=== PATIENT | female | born 1955 | race Caucasian/White ===

== ENCOUNTER 2021-01-30 07:27 | Emergency (ER) | payer BC ==
[~2021-01-30] VITALS: Ht 157.5 cm; Wt 72.6 kg
[~2021-01-30 07:27] MED LIST: CELEBREX 200 M200 M1 PO; COMPAZINE25 MG RECTAL; COMPAZINE5 MG PO; DURAGESIC1 EAC2 TRANSDERM; GABAPENTIN 100100 MG PO; LIPITOR 20 MG T20 M1 PO; NEURONTIN 300300 M1 PO; NEXIUM 40 MG CA40 M1
[2021-01-30] MEDS ORDERED: VITAMIN D (07:38)
[2021-01-30] MEDS ORDERED: LISINOPRIL5 MG (07:38)
[2021-01-30] MEDS ORDERED: PREDNISONE 20 M20 M1 PO (08:33)
[2021-01-30] MEDS ORDERED: VENTOLIN HFA 1818 GM INH (08:33)
[2021-01-30] MEDS ORDERED: ZPAK PO (08:33)
[2021-01-30 09:05] VITALS: BP 132/64
--- NOTE | 2021-02-01 13:47 | EKG ---
[place] [address] ELECTROCARDIOGRAM REPORT Name: ROSA AVINA Room: [facility]#: [id number] Admission: 01/30/21 Attend Phys: Discharge: 01/30/21 Date of : 57 Date of Service: 01/30/21 0747 Report #: [id number] THIS REPORT FOR: //name// [facility] ED Test Date: 2021-01-30 Test Time: 07:47:53 Pat Name: ROSA AVINA Department: Room: Gender: Operational Intelligence Analyst: FRIEDA : 1955 Requested By: Jackson Rossi Order Number: [id number] John MD: Jhon Ha Measurements Intervals [place] Rate: 77 P: 74 AK: 149 QRS: 23 QRSD: 84 T: 33 QT: 378 QTc: 428 Interpretive Statements Sinus rhythm Probable left atrial enlargement No previous ECG available for comparison Electronically Signed On 02-01-2021 13:47:13 CDT by Jhon Ha [email or web address] <ELECTRONICALLY SIGNED> By: Jhon Ha MD, [facility] 02/01/21 1347 0747 0747 Jhon Ha MD, FACC /EPI
== END 2021-01-30 08:57 | disposition home or self-care (01) ==
LOC: M.ERS 07:27
DX: J40 Bronchitis, not specified as acute or chronic (principal); Z20.822 Contact with and (suspected) exposure to COVID-19; I10 Essential (primary) hypertension; M79.7 Fibromyalgia; K21.9 Gastro-esophageal reflux disease without esophagitis; Z88.0 Allergy status to penicillin; Z88.2 Allergy status to sulfonamides; Z88.5 Allergy status to narcotic agent; Z98.890 Other specified postprocedural states; Z98.51 Tubal ligation status

== ENCOUNTER → 2021-03-22 | Outpatient (CLI) | payer BC ==
[~2021-03-22] MED LIST changes: +LISINOPRIL5 MG; +PREDNISONE 20 M20 M1 PO; +VENTOLIN HFA 1818 GM INH; +VITAMIN D; +ZPAK PO
== END ==
LOC: M.MRI 08:16
PROVIDERS: ATTEND Family Medicine
DX: S46.111A Strain of muscle, fascia and tendon of long head of biceps, right arm, initial encounter (principal); M75.101 Unspecified rotator cuff tear or rupture of right shoulder, not specified as traumatic; M62.511 Muscle wasting and atrophy, not elsewhere classified, right shoulder; M19.011 Primary osteoarthritis, right shoulder; M25.411 Effusion, right shoulder; M67.411 Ganglion, right shoulder; X58.XXXA Exposure to other specified factors, initial encounter; Y93.89 Activity, other specified; Y92.89 Other specified places as the place of occurrence of the external cause; Y99.8 Other external cause status

== ENCOUNTER 2021-07-03 10:35 | Emergency (ER) | payer MEDICARE, OTHER ==
[~2021-07-03] VITALS: Ht 157.5 cm; Wt 74.8 kg
[2021-07-03] MEDS ORDERED: NYSTATIN15 G3 TOP (10:46)
[2021-07-03] MEDS ORDERED: TRIAMCINOLONE A80 G2 TOP (10:46)
[2021-07-03] MEDS ORDERED: NYSTATIN 100,0015 G1 TOP (10:46)
[2021-07-03 10:50] VITALS: BP 148/86
== END 2021-07-03 10:51 | disposition home or self-care (01) ==
LOC: M.ERS 10:35
DX: L30.8 Other specified dermatitis (principal); B37.49 Other urogenital candidiasis; I10 Essential (primary) hypertension; K21.9 Gastro-esophageal reflux disease without esophagitis; M79.7 Fibromyalgia; Z98.890 Other specified postprocedural states; Z98.51 Tubal ligation status; Z79.899 Other long term (current) drug therapy; Z88.5 Allergy status to narcotic agent; Z88.0 Allergy status to penicillin; Z88.2 Allergy status to sulfonamides

== ENCOUNTER → 2021-09-20 | Outpatient (CLI) | payer MEDICARE, OTHER ==
[~2021-09-20] MED LIST changes: +NYSTATIN 100,0015 G1 TOP; +NYSTATIN15 G3 TOP; +TRIAMCINOLONE A80 G2 TOP
== END ==
LOC: M.ULTRA 11:00
PROVIDERS: ATTEND Nurse Practitioner Family
DX: R22.0 Localized swelling, mass and lump, head (principal)

== ENCOUNTER → 2021-10-25 | Outpatient (CLI) | payer MEDICARE, OTHER | LOC: M.CRD 10-20 14:00 | PROVIDERS: ATTEND Psychiatry & Neurology Neuromuscular Medicine | DX: R55 Syncope and collapse (principal) ==